=== PATIENT | male | born 1940 | race Caucasian/White ===

== ENCOUNTER 2019-08-27 20:25 | Emergency (ER) | payer OTHER ==
[~2019-08-27] VITALS: Ht 180.3 cm; Wt 127.3 kg
[2019-08-27] MEDS ORDERED: ASPI81 PO (20:48)
[2019-08-27] MEDS ORDERED: METO25XL PO (20:48)
[2019-08-27] MEDS ORDERED: ATOR40TA28 PO (20:48)
[2019-08-27] MEDS ORDERED: GLIP1TAB6 PO (20:48)
[2019-08-27] MEDS ORDERED: FURO40 PO (20:48)
[2019-08-27 20:52] LABS: BASOPHILS % (AUTO) 0.7 % (0.0-2.0); EOSINOPHILS % (AUTO) 7.3 % (1.0-6.0); HEMATOCRIT 40.5 % (41-53); HEMOGLOBIN 13.2 g/dL (13.5-17.5); LYMPHOCYTES # (AUTO) 1.5 K/uL (1.0-4.8); LYMPHOCYTES % (AUTO) 21.5 % (22.0-44.0); MEAN CORPUSCULAR HEMOGLOBIN 29.8 pg (26.0-34.0); MEAN CORPUSCULAR HGB CONC 32.7 G/dL (31.0-37.0); MEAN CORPUSCULAR VOLUME 91 fL (80-100); MONOCYTES # (AUTO) 0.7 K/uL (0.1-1.0); MONOCYTES % (AUTO) 9.9 % (2.0-9.0); NEUTROPHILS # (AUTO) 4.2 K/uL (1.8-7.7); NEUTROPHILS % (AUTO) 60.6 % (40.0-70.0); PLATELET COUNT (AUTO) 281 K/uL (150-450); RED BLOOD CELL COUNT(AUTO) 4.44 MIL/uL (4.50-5.90); RED CELL DISTRIBUTION WIDTH 15.2 % (11.5-14.5)
[2019-08-27 21:04] LABS: PROTHROMBIN TIME 10.5 SEC (9.4-11.6)
[2019-08-27 21:10] LABS: CALCIUM, TOTAL 8.9 mg/dL (8.8-10.5); CREATININE 1.18 mg/dL (0.60-1.30); POTASSIUM 4.2 mmol/L (3.5-5.1)
[2019-08-27 21:16] LABS: ALBUMIN 2.8 g/dL (3.4-5.0); BILIRUBIN,TOTAL 0.7 mg/dL (0.1-1.0); TOTAL PROTEIN, SERUM 7.3 g/dL (6.4-8.2)
[2019-08-27] MEDS ORDERED: ASPIRIN 325 MG TABLET PO ONE (22:15)
[2019-08-28 02:40] VITALS: BP 136/80
== END 2019-08-28 03:00 | disposition short-term general hospital (02) ==
LOC: EMS 20:29 → EDBD 20:29 → EMS 08-28 03:00
DX: I21.4 Non-ST elevation (NSTEMI) myocardial infarction (principal); I11.0 Hypertensive heart disease with heart failure; I50.9 Heart failure, unspecified; M79.89 Other specified soft tissue disorders; E11.9 Type 2 diabetes mellitus without complications; I25.10 Atherosclerotic heart disease of native coronary artery without angina pectoris; Z79.82 Long term (current) use of aspirin; Z79.899 Other long term (current) drug therapy; Z79.84 Long term (current) use of oral hypoglycemic drugs
CPT/HCPCS: 93005; 99291